=== PATIENT | female | born 1970 | race Asian ===

== ENCOUNTER 2016-12-22 19:27 | Inpatient (IN) | payer SELFPAY ==
[~2016-12-22] VITALS: Ht 157.5 cm; Wt 46.6 kg
[2016-12-23 00:10] VITALS: BP 124/69; PULSE 84; RESP 17; TEMP 97.7; O2SAT 97
[2016-12-23] MEDS ORDERED: MAGNESIUM HYDROXIDE SUSP 30 ML CUP PO PRN (00:30)
[2016-12-23] MEDS ORDERED: LORazepam 2 MG/ML VIAL IM PRN (00:30)
[2016-12-23] MEDS ORDERED: ALUMINUM/MAGNESIUM/SIMETH 30 ML CUP PO PRN (00:30)
[2016-12-23] MEDS ORDERED: LORazepam 1 MG TAB PO PRN (00:30)
[2016-12-23] MEDS ORDERED: ACETAMINOPHEN 325 MG TAB PO PRN (00:30)
[2016-12-23 06:22] VITALS: BP 115/58; PULSE 61; RESP 17; TEMP 98.6; O2SAT 98
[2016-12-23] MEDS ORDERED: NICOTINE 21 MG/24 HR PATCH T-DERMAL SCH (09:00)
--- NOTE | 2016-12-23 14:04 | HHI.HP ---
Provisional Diagnosis Admission Date Dec 22, 2016 at 21:00 [place]. Adjustment disorder with depressed mood f 43.21 Certification of Person's Competence To Provide Express and Informed Consent I have personally examined Anca Crockett , a person being served at [facility] on, Dec 23, 2016 13:52. Express and informed consent means consent voluntarily given in writing, by a competent person, after sufficient explanation and disclosure of the subject matter involved to enable the person to make a knowing and willful decision without any element of force, fraud, deceit, duress, or other form of constraint or coercion. This person is 18 years of age or older, is not now known to be incompetent to consent to treatment with a guardian advocate, and does not have a health care surrogate or proxy currently making medical treatment decisions. I have found this person to be one of the following: []xxx Competent to provide express and informed consent, as defined above, for voluntary admission to this facility and is competent to provide express and informed consent for treatment. He/she has the consistent capacity to make well reasoned, willful, and knowing decisions concerning his or her medical or mental health treatment. The person fully and consistently understands the purpose of the admission for examination/placement and is fully capable of personally exercising all rights assured under [place] Incompetent to provide express and informed consent to voluntary admission, and this is incompetent to provide express and informed consent to treatment. The person must be transferred to involuntary status and a petition for a guardian advocate filed with the Circuit Court. [] Refusing to provide express and informed consent to voluntary admission but is competent to provide express and informed consent for treatment. The person must be discharged or transferred to involuntary status. Form shall be completed within 24 hours of a person's arrival at the receiving facility and filed in the clinical record of each person: 1. Admitted on a voluntary basis 2. Permitted to provide express and informed consent to his/her own treatment 3. Allowed to transfer from involuntary to voluntary status 4. Prior to permitting a person to consent to his or her own treatment after having been previously found incompetent to consent to treatment. History of Present Illness Capacity: Has Capacity Psych Chief Complaint: patient depressed vague suicidal ideation HPI Patient is a 46-year-old [place] female comes here under Fay act by the [facility] Department dated 12/22/16 at 12:20 AM that documented reviewed essentially stating the listed subject called the suicide hotline and advised that she wanted to suicide by taking pills and overdosing after locating the subject I make contact with her and she stated that she is depressed and wanted to commit suicide by overdose. Patient was seen screened in [facility] at that facility patient was worked up and medically cleared. Though the did not to urine toxicology room blood alcohol level. Patient chance for to this facility. Patient seen in her room on 2600 nurse Karlie and medical student Sam. Patient is alert oriented calm and cooperative. Stating she lives with her mother and 20-year-old daughter. She has been out of work for fairly significant period of time. They supported by her mother working and her daughter working. Patient stated she was feeling somewhat sad for herself to the depressive symptoms will a few days worth of insomnia. Though she denied voices or visions with this night any alcohol or drug use with this her appetite was fair. Misuse able to cope with stress of living with her mother though at times was somewhat difficult. She had a vague suicidal ideation. Patient is a history of vague suicidal ideation as a teenager, though she denies any inpatient psychiatric hospitalizations. States she is on an antidepressant for a brief period of time back as a teen but none now. She denies any prior misuse of alcohol. Or drugs. She now denies suicidality contract was to do no harm. Patient is alert oriented calm does have a fair sense of humor. She does wish to go home. Follow-up with mental health services in [place]. At this time I feel patient does not meet Fay criteria will lift Fay act allow patient to be discharged to herself. Her daughter will drive down from [place] to pick her up. Will refer through mental health clinic in [place]. Patient also is of fairly severe history of migraines is on Fioricet for that. Will refer her to the [facility]. Perhaps there would be in neurology clinic there that would accept any treatment without insurance. There will be no Rx by me Review of Systems Constitutional: DENIES: Diaphoretic episodes, Fatigue, Fever, Weight gain, Weight loss, Chills, Dizziness, Change in appetite, Night Sweats Endocrine: DENIES: Abnorml menstrual pattern, Heat/cold intolerance, Polydipsia , Polyuria, Polyphagia Eyes: DENIES: Blurred vision, Diplopia, Eye inflammation, Eye pain, Vision loss , Photosensitivity, Double Vision Ears, nose, mouth, throat: COMPLAINS OF: Tinnitus (history of Mnire's disease ), DENIES: Hearing loss, Vertigo, Nasal discharge, Oral lesions, Throat pain, Hoarseness, Ear Pain, Running Nose, Epistaxis, Sinus Pain, Toothache, Odynophagia Respiratory: DENIES: Apneas, Cough, Snoring, Wheezing, Hemoptysis, Sputum production, Shortness of breath Cardiovascular: DENIES: Chest pain, Palpitations, Syncope, Dyspnea on Exertion , PND, Lower Extremity Edema, Orthopnea, Claudication Gastrointestinal: DENIES: Abdominal pain, Black stools, Bloody stools, Constipation, Diarrhea, Nausea, Vomiting, Difficulty Swallowing, Anorexia Genitourinary: DENIES: Abnormal vaginal bleeding, Dysmenorrhea, Dyspareunia, Sexual dysfunction, Urinary frequency, Urinary incontinence, Urgency, Hematuria , Dysuria, Nocturia, Vaginal discharge Musculoskeletal: DENIES: Joint pain, Muscle aches, Stiffness, Joint Swelling, Back pain, Neck pain Integumentary: DENIES: Abnormal pigmentation, Pruritus, Rash, Nail changes, Breast masses, Breast skin changes, Nipple discharge Hematologic/lymphatic: DENIES: Bruising, Lymphadenopathy Immunologic/allergic: DENIES: Eczema, Urticaria Neurologic: COMPLAINS OF: Headache (long history of migraine) Psychiatric: COMPLAINS OF: Depression Past Psych History Psychological trauma history Denies Violence risk - others (6 mos) Low Violence risk - self (6 mos) Low to moderate Substance Abuse History Drugs/Alcohol past 12 months Denies Past Family Social History Coded Allergies: No Known Allergies (Unverified , 12/23/16) Verified with patient [email or web address] on 12/23/16 at 0010 Past Medical History History of migraines and Mnire's disease Current Medications Medications (Trade) Dose Ordered Sig/David Route Start Time Stop Time Status Last Admin (Ativan) 1 mg Q6H PRN PO 12/23/16 00:30 (Ativan Inj) 1 mg Q6H PRN IM 12/23/16 00:30 (Tylenol) 650 mg Q4H PRN PO 12/23/16 00:30 (Milk Of Magnesia Liq) 30 ml DAILY PRN PO 12/23/16 00:30 (Mag-Al Plus Susp Liq) 30 ml Q6H PRN PO 12/23/16 00:30 (Habitrol 21 Mg Patch.24 Hr) 1 patch DAILY T-DERMAL 12/23/16 09:00 Miscellaneous Information 1 HS T-DERMAL 12/23/16 21:00 Family Psych History No history mental health issues and family no history addictions Social History Patient is a 20-year-old daughter and her mother with 2 cats and 2 dogs Patient's Strengths (min. 2) Patient verbal able to access healthcare intelligent and cooperative Physical Exam Patient medically cleared through [facility] patient sitting in room in no acute distress, no respiratory distress, no complaints of abdominal pain. Patient moves all 4 extremities without difficulty. No abnormal motor movements noted Vital Signs Vital Signs Date Time Temp Pulse Resp B/P (MAP) Pulse Ox O2 Delivery O2 Flow Rate FiO2 12/23/16 06:22 98.6 61 17 115/58 (77) 98 Mental Status Examination Appearance: Appropriate Consciousness: Alert Orientation: x4 Motor Activity: Normal gait Speech: Unremarkable Language: Adequate Fund of Knowledge: Adequate Attention and Concentration: Adequate Memory: Unremarkable Mood: Other (mildly dysphoric) Affect: Other (good range and intensity) Thought Process & Associations: Intact, Logical Thought Content: Appropriate Hallucination Type: None Delusion Type: None Suicidal Ideation: Yes (denies at this time able contracted to no harm) Suicidal Plan: Yes (denies at this time able to contracted to no harm) Suicidal Intention: Yes (denies at this time irritable contracted to no harm) Homicidal Ideation: No Homicidal Plan: No Homicidal Intention: No Insight: Adequate Judgment: Adequate Assessment & Plan Problem List: (1) Adjustment disorder with depressed mood ICD Codes: F43.21 - Adjustment disorder with depressed mood Assessment & Plan Estimated LOS: days this time patient does not meet Fay criteria will lift Fay act allow patient to be discharged to herself. No Rx by me. Her to mental health clinic in [place], also recommend patient explore neurology clinic through [facility] to address her migraines Discharge Planning See above Request HC Surrog/Guard Advoc?: No Eladio Colbert MD Dec 23, 2016 14:04
--- NOTE | 2016-12-23 14:09 | HHI.DS ---
Psychiatry Discharge Summary Inpatient Psychiatric care?: Yes Advance Directive: No Reason Not Provided: none Mental Health AdvanceDirective: No Health Care Proxy: No Admission Admission Date Dec 22, 2016 at 21:00 Admission Diagnosis: (1) Adjustment disorder with depressed mood ICD Code: F43.21 - Adjustment disorder with depressed mood Brief History Patient is a 46-year-old Vincentian female comes here under Fay act by the [facility] Department dated 12/22/16 at 12:20 AM that documented reviewed essentially stating the listed subject called the suicide hotline and advised that she wanted to suicide by taking pills and overdosing after locating the subject I make contact with her and she stated that she is depressed and wanted to commit suicide by overdose. Patient was seen screened in [facility] at that facility patient was worked up and medically cleared. Though the did not to urine toxicology room blood alcohol level. Patient chance for to this facility. Patient seen in her room on 2600 nurse [address]ie and medical student Sam. Patient is alert oriented calm and cooperative. Stating she lives with her mother and 20-year-old daughter. She has been out of work for fairly significant period of time. They supported by her mother working and her daughter working. Patient stated she was feeling somewhat sad for herself to the depressive symptoms will a few days worth of insomnia. Though she denied voices or visions with this night any alcohol or drug use with this her appetite was fair. Misuse able to cope with stress of living with her mother though at times was somewhat difficult. She had a vague suicidal ideation. Patient is a history of vague suicidal ideation as a teenager, though she denies any inpatient psychiatric hospitalizations. States she is on an antidepressant for a brief period of time back as a teen but none now. She denies any prior misuse of alcohol. Or drugs. She now denies suicidality contract was to do no harm. Patient is alert oriented calm does have a fair sense of humor. She does wish to go home. Follow-up with mental health services in [place]. At this time I feel patient does not meet Fay criteria will lift Fay act allow patient to be discharged to herself. Her daughter will drive down from [place] to pick her up. Will refer through mental health clinic in [place]. Patient also is of fairly severe history of migraines is on Fioricet for that. Will refer her to the [facility]. Perhaps there would be in neurology clinic there that would accept any treatment without insurance. There will be no Rx by me Tobacco Use In Past 30 Days: No Tobacco Past 30 Days Alcohol Use: Never Hospital Course Please see above dictation under brief history, patient does not meet Fay criteria lift Fay act patient to be discharged to herself, to be picked up by her daughter for return to [place]. No Rx by me. Refer patient to mental health clinic in [place]. Suggested she explore the possibility of at neurology clinic through [facility] to address her migraines Results Blood Pressure 115 / 58 Vital Signs Date Time Temp Pulse Resp B/P (MAP) Pulse Ox O2 Delivery O2 Flow Rate FiO2 12/23/16 06:22 98.6 61 17 115/58 (77) 98 None done here there was no urine toxicology of blood alcohol level done at [facility] in [place] Summary of Procedures None done Pending results at discharge: No Medications # of Antipsychotic meds at D/C: 0 Approp Antipsych med options 1 - Minimum of three failed multiple trials of monotherapy. 2 - Documented plan to taper to monotherapy due to previous use of multiple meds OR cross-taper in progress at D/C. 3 - Documentation of augmentation of Clozapine. 4 - Justification other than those listed in allowable values 1-3, document here : Discharge Discharge Date: Dec 23, 2016 Discharge Diagnosis: (1) Adjustment disorder with depressed mood Diagnosis: Principal ICD Code: F43.21 - Adjustment disorder with depressed mood (2) Hx of migraines Diagnosis: Secondary ICD Code: Z86.69 - Personal history of other diseases of the nervous system and sense organs (3) History of Meniere's disease Diagnosis: Secondary ICD Code: Z86.69 - Personal history of other diseases of the nervous system and sense organs Pt Condition on Discharge: Stable Discharge Disposition: Discharge Home Discharge Instructions Diet Instructions: As Tolerated, No Restrictions Activities you can perform: Regular-No Restrictions Scheduled Appointment: refer mental health clinic in [place], strong recommendation follow-up neurology clinic through [facility] Discharge Time > 30 minutes Mental Status Examination Appearance: Appropriate Consciousness: Alert Orientation: x4 Motor Activity: Normal gait Speech: Unremarkable Language: Adequate Fund of Knowledge: Adequate Attention and Concentration: Adequate Memory: Unremarkable Mood: Other (mildly dysphoric) Affect: Other (good range and intensity) Thought Process & Associations: Intact, Logical Thought Content: Appropriate Hallucination Type: None Delusion Type: None Suicidal Ideation: Yes (denies at this time able contracted to no harm) Suicidal Plan: Yes (denies at this time able to contracted to no harm) Suicidal Intention: Yes (denies at this time irritable contracted to no harm) Homicidal Ideation: No Homicidal Plan: No Homicidal Intention: No Insight: Adequate Judgment: Adequate Discharge/Advance Care Plan Health Problems: (1) Adjustment disorder with depressed mood Goals to promote your health * To prevent worsening of your condition and complications * To maintain your health at the optimal level Directions to meet your goals Take your medications as prescribed Follow your dietary instruction Follow activity as directed Keep your appointments as scheduled Take your immunizations and boosters as scheduled If your symptoms worsen call your PCP, if no PCP go to Urgent Care Center or Emergency Room For 09/09 questions related to your inpatient stay or results of tests pending at discharge, please contact Dr. Eladio Colbert at Smoking is Dangerous to Your Health. Avoid second hand smoking Eladio Colbert MD Dec 23, 2016 14:09
--- NOTE | 2016-12-23 14:09 | HHI.DS ---
Psychiatry Discharge Summary Inpatient Psychiatric care?: Yes Advance Directive: No Reason Not Provided: none Mental Health AdvanceDirective: No Health Care Proxy: No Admission Admission Date Dec 22, 2016 at 21:00 Admission Diagnosis: (1) Adjustment disorder with depressed mood ICD Code: F43.21 - Adjustment disorder with depressed mood Brief History Patient is a 46-year-old Citizen Of [place] female comes here under Fay act by the [facility] Department dated 12/22/16 at 12:20 AM that documented reviewed essentially stating the listed subject called the suicide hotline and advised that she wanted to suicide by taking pills and overdosing after locating the subject I make contact with her and she stated that she is depressed and wanted to commit suicide by overdose. Patient was seen screened in [facility] at that facility patient was worked up and medically cleared. Though the did not to urine toxicology room blood alcohol level. Patient chance for to this facility. Patient seen in her room on 2600 nurse Karlie and medical student Sam. Patient is alert oriented calm and cooperative. Stating she lives with her mother and 20-year-old daughter. She has been out of work for fairly significant period of time. They supported by her mother working and her daughter working. Patient stated she was feeling somewhat sad for herself to the depressive symptoms will a few days worth of insomnia. Though she denied voices or visions with this night any alcohol or drug use with this her appetite was fair. Misuse able to cope with stress of living with her mother though at times was somewhat difficult. She had a vague suicidal ideation. Patient is a history of vague suicidal ideation as a teenager, though she denies any inpatient psychiatric hospitalizations. States she is on an antidepressant for a brief period of time back as a teen but none now. She denies any prior misuse of alcohol. Or drugs. She now denies suicidality contract was to do no harm. Patient is alert oriented calm does have a fair sense of humor. She does wish to go home. Follow-up with mental health services in [place]. At this time I feel patient does not meet Fay criteria will lift Fay act allow patient to be discharged to herself. Her daughter will drive down from [place] to pick her up. Will refer through mental health clinic in [place]. Patient also is of fairly severe history of migraines is on Fioricet for that. Will refer her to the [facility]. Perhaps there would be in neurology clinic there that would accept any treatment without insurance. There will be no Rx by me Tobacco Use In Past 30 Days: No Tobacco Past 30 Days Alcohol Use: Never Hospital Course Please see above dictation under brief history, patient does not meet Fay criteria lift Fay act patient to be discharged to herself, to be picked up by her daughter for return to [place]. No Rx by me. Refer patient to mental health clinic in [place]. Suggested she explore the possibility of at neurology clinic through [facility] to address her migraines Results Blood Pressure 115 / 58 Vital Signs Date Time Temp Pulse Resp B/P (MAP) Pulse Ox O2 Delivery O2 Flow Rate FiO2 12/23/16 06:22 98.6 61 17 115/58 (77) 98 None done here there was no urine toxicology of blood alcohol level done at [facility] in [place] Summary of Procedures None done Pending results at discharge: No Medications # of Antipsychotic meds at D/C: 0 Approp Antipsych med options 1 - Minimum of three failed multiple trials of monotherapy. 2 - Documented plan to taper to monotherapy due to previous use of multiple meds OR cross-taper in progress at D/C. 3 - Documentation of augmentation of Clozapine. 4 - Justification other than those listed in allowable values 1-3, document here : Discharge Discharge Date: Dec 23, 2016 Discharge Diagnosis: (1) Adjustment disorder with depressed mood Diagnosis: Principal ICD Code: F43.21 - Adjustment disorder with depressed mood (2) Hx of migraines Diagnosis: Secondary ICD Code: Z86.69 - Personal history of other diseases of the nervous system and sense organs (3) History of Meniere's disease Diagnosis: Secondary ICD Code: Z86.69 - Personal history of other diseases of the nervous system and sense organs Pt Condition on Discharge: Stable Discharge Disposition: Discharge Home Discharge Instructions Diet Instructions: As Tolerated, No Restrictions Activities you can perform: Regular-No Restrictions Scheduled Appointment: refer mental health clinic in [place], strong recommendation follow-up neurology clinic through [facility] Discharge Time > 30 minutes Mental Status Examination Appearance: Appropriate Consciousness: Alert Orientation: x4 Motor Activity: Normal gait Speech: Unremarkable Language: Adequate Fund of Knowledge: Adequate Attention and Concentration: Adequate Memory: Unremarkable Mood: Other (mildly dysphoric) Affect: Other (good range and intensity) Thought Process & Associations: Intact, Logical Thought Content: Appropriate Hallucination Type: None Delusion Type: None Suicidal Ideation: Yes (denies at this time able contracted to no harm) Suicidal Plan: Yes (denies at this time able to contracted to no harm) Suicidal Intention: Yes (denies at this time irritable contracted to no harm) Homicidal Ideation: No Homicidal Plan: No Homicidal Intention: No Insight: Adequate Judgment: Adequate Discharge/Advance Care Plan Health Problems: (1) Adjustment disorder with depressed mood Goals to promote your health * To prevent worsening of your condition and complications * To maintain your health at the optimal level Directions to meet your goals Take your medications as prescribed Follow your dietary instruction Follow activity as directed Keep your appointments as scheduled Take your immunizations and boosters as scheduled If your symptoms worsen call your PCP, if no PCP go to Urgent Care Center or Emergency Room For 09/09 questions related to your inpatient stay or results of tests pending at discharge, please contact Dr. Eladio Colbert at Smoking is Dangerous to Your Health. Avoid second hand smoking Eladio Colbert MD Dec 23, 2016 14:09
[2016-12-23] MEDS ORDERED: REMOVE OLD NICOTINE PATCH T-DERMAL SCH (21:00)
== END 2016-12-23 16:50 | disposition home or self-care (01) | DRG 881 ==
LOC: H260 21:00
PROVIDERS: ADMIT Psychiatry & Neurology Psychiatry; ATTEND Psychiatry & Neurology Psychiatry
DX: F43.21 Adjustment disorder with depressed mood (principal); R45.851 Suicidal ideations; G47.00 Insomnia, unspecified; G43.909 Migraine, unspecified, not intractable, without status migrainosus